=== PATIENT | female | born 1995 | race Caucasian/White ===

== ENCOUNTER 2021-02-27 23:28 | Emergency (ER) | payer MEDICAID, SELFPAY ==
--- NOTE | ~2021-02-27 | CT_ITS ---
EXAMINATION: CT abdomen pelvis wo con EXAM DATE: 02/28/2021 02:37 INDICATION: Left flank pain. TECHNIQUE: Spiral CT of the abdomen and pelvis was performed without contrast. Axial, coronal and s agittal images of the abdomen and pelvis were reviewed. The dose-length product (DLP) for this exami nation was 436.66 mGy-cm. The exposure was tailored according to patient size (auto mA exposure cont rol), and iterative reconstruction (ASIR) was used as additional dose reduction technique. There is no prior study for comparison. FINDINGS: There is hepatic steatosis without suspicious focal lesion identified. Spleen, adrenal glan ds, pancreas are unremarkable. Gallbladder is unremarkable. No biliary obstruction. There is no ne phrolithiasis or hydronephrosis. The uterus is anteverted and morphologically normal. The bladder is unremarkable. There is no retroperitoneal or pelvic lymphadenopathy. The appendix is normal. The stomach and small bowel are unremarkable. There is expected amount of c olonic stool. No free intraperitoneal gas. The heart is normal in size. There are no pericardial or pleural effusions. The lung bases are unremarkable. There are no osteoblastic or osteolytic les ions identified. IMPRESSION: No acute intra-abdominal findings. Reviewed, dictated and finalized at location A.
[2021-02-27 23:31] VITALS: BP 124/91; PULSE 119; RESP 18; TEMP 36.7; O2SAT 100
[2021-02-28 00:05] LABS: Basophils Percent Auto 0.5 % (0.2-1.2); Eosinophils Absolute Auto 0.3 K/mm3 (0-0.3); Eosinophils Percent Auto 4.9 % (0-4.4); Hematocrit 42.7 % (37.0-47.0); Hemoglobin 14.1 g/dL (12.0-15.0); Immature Granulocyte Absolute 0.05 K/mm3 (0.00-0.031); Immature Granulocyte Percent A 0.8 % (0-0.5); Lymphocytes Absolute Auto 2.25 K/mm3 (0.9-3.2); Lymphocytes Percent Auto 36.6 % (18.3-44.2); Mean Corpuscular Volume 84.9 fl (80-100); Mean Platelet Volume 9.4 fl (7.4-10.4); Monocytes Absolute Auto 0.3 K/mm3 (0.1-0.6); Monocytes Percent Auto 4.6 % (2.6-8.5); Neutrophils Absolute Auto 3.2 K/mm3 (1.3-6.7); Neutrophils Percent Auto 52.6 % (45.5-73.1); Platelet Count Result 319 k/mm3 (150-375); Red Blood Count 5.03 M/mm3 (4.2-5.4); Red Cell Distribution Width 13.5 % (11.5-14.5); White Blood Count 6.1 K/mm3 (4.5-10.0)
[2021-02-28 00:10] LABS: Add Urine Microscopic? YES; Appearance Urine Cloudy (Clear); Bacteria Urine Trace /hpf; Bilirubin Urine Negative (Negative); Blood Urine Negative (Negative); Color Urine Yellow (Yellow); Glucose Urine UA Negative (Negative); Ketones Urine Negative (Negative); Leukocyte Esterase Ur Negative LEU/UL (Negative); Mucus Urine Rare /lpf; Nitrate Urine Negative (Negative); Protein Urine Negative (Negative); Specific Grav Ur 1.025 (1.001-1.035); Squamous Epithelial Cell Urine Occasional /hpf (Few); Urobilinogen Urine Negative mg/dL (<2.0); WBC Urine 0-3 /hpf
[2021-02-28 00:35] LABS: Anion Gap 10 mmol/L (8-16); Blood Urea Nitrogen 10 mg/dL (7-17); Calcium 9.7 mg/dL (8.4-10.2); Carbon Dioxide 22 mmol/L (22-30); Chloride 107 mmol/L (98-107); Estimated CRCL calculation 129 ml/min; Estimated Glomerular Filt Rate > 60; Glucose 126 mg/dL (65-110); Potassium 4.2 mmol/L (3.4-5.0); Sodium 139 mmol/L (137-145)
--- NOTE | 2021-02-28 02:11 | ED.ABDPAIN ---
HPI - Abdominal Pain General Chief Complaint: Abdominal Pain Stated Complaint: L flank pain Time Seen by Provider: 02/28/21 02:10 Source: patient Mode of arrival: ambulatory Limitations: no limitations History of Present Illness HPI narrative: Patient is a 25-year-old female complaining of left flank pain, sharp, 9 out of 10, radiating to left groin that started approximately 20 minutes prior to arrival. Patient denies any chest pain, shortness of breath, nausea, vomiting, diarrhea, fever or chills. Patient denies any urinary symptoms. Related Data Home Medications Medication Instructions Recorded Confirmed citalopram mg 02/28/21 Allergies Allergy/AdvReac Type Severity Reaction Status Date / Time No Known Allergies Allergy Verified 02/28/21 02:44 Review of Systems Review of Systems: All systems reviewed & are unremarkable except as noted in HPI and below Constitutional: Constitutional: Denies body ache(s), Denies chills, Denies excessive sweating, Denies fatigue, Denies fever(s), Denies headache(s), Denies lethargy, Denies malaise, Denies weakness and Denies weight loss Eyes: Eyes: Denies blurry vision, Denies change in vision and Denies loss of vision ENT: Denies dizziness, Denies ear discharge, Denies headache(s), Denies lip swelling, Denies epistaxis, Denies nasal congestion, Denies neck pain, Denies throat swelling and Denies tongue swelling Cardiovascular: Cardiovascular: Denies chest pain, Denies chest pain at rest, Denies chest pain with activity, Denies diaphoresis, Denies rapid heart rate, Denies edema, Denies irregular heart rhythm, Denies lightheadedness, Denies palpitations, Denies dyspnea and Denies dyspnea on exertion Respiratory: Respiratory: Denies chest congestion, Denies cough, Denies hemoptysis, Denies dyspnea and Denies dyspnea on exertion Gastrointestinal: Gastrointestinal: Denies abdominal pain, Denies melena, Denies hematochezia, Denies diarrhea, Denies nausea, Denies vomiting and Denies hematemesis Musculoskeletal: Musculoskeletal: Denies abnormal gait, Denies deformity, Denies joint swelling, Denies limited range of motion, Denies neck pain and Denies numbness Neurologic: Denies Abnormal speech present, Denies abnormal gait, Denies confusion, Denies dizziness, Denies headache(s), Denies focal weakness, Denies loss of vision, Denies numbness, Denies Other visual disturbances, Denies Sensory deficit (Neuro) and Denies weakness Psychiatric: Psychiatric: Denies confusion, Denies depression, Denies auditory hallucinations, Denies homicidal ideation and Denies suicidal ideation Endocrine: Endocrine: Denies cold intolerance, Denies excessive sweating, Denies fatigue, Denies heat intolerance and Denies palpitations Hematologic/Lymphatic: Hematologic/Lymphatic: Denies easy bleeding and Denies easy bruising Allergic/Immunologic: Allergic/Immunologic: Denies lip swelling, Denies throat swelling and Denies tongue swelling [facility] Social History Social History Gender identity (if verbalized by the patient): Female Comments Past medical history: None Family history: Noncontributory Social history non-smoker no EtOH or drug use Exam Const: General: cooperative, healthy appearing, comfortable, no acute distress, well developed, alert and awake; No confusion Orientation/consciousness: oriented to person, oriented to place, oriented to time, patient oriented x3 and No confusion Limitations: no limitations HENMT: Head: normal to inspection, normocephalic and atraumatic Ears: hearing grossly normal bilaterally, TM normal on the right and TM normal on the left General nose exam: Normal external nose present, Normal nares present and No nasal discharge present Face and sinus: normal facial exam Mouth: Yes Normal oral and palatal mucosa present, Yes lip normal, Yes tongue normal and Yes oropharynx normal Throat: posterior oropharynx normal, tonsils dung
--- NOTE | 2021-02-28 02:34 | PC.NURSE ---
Pt back to room from radiology at this time.
[2021-02-28 02:40] VITALS: BP 121/50; PULSE 104; RESP 16; O2SAT 100
[2021-02-28] MEDS: KETOROLAC 30 MG/ML VIAL (*BKC) IV PUSH (02:51)
[2021-02-28] MEDS: PROMETHAZINE HCL 25 MG/ML AMPUL 12.5 MG IV PUSH (02:53)
[2021-02-28] MEDS: SODIUM CHLORIDE 0.9% IV 1,000 ML 999 ML IV CONT (02:53)
[2021-02-28 04:06] VITALS: BP 117/84; PULSE 77; RESP 16; O2SAT 98
== END 2021-02-28 04:23 | disposition home or self-care (01) ==
PROVIDERS: Emergency Provider Emergency Medicine; PCP Physician Assistant
DX: R10.9 Unspecified abdominal pain (principal)
CPT/HCPCS: 36415; 74176; 80048; 81001; 81025; 85025; 96361; 96374; 96375; 99284; J1885; J2550; J7030

== ENCOUNTER 2021-03-16 09:49 | Outpatient (CLI) | payer OTHER, MEDICAID, SELFPAY ==
--- NOTE | 2021-03-16 11:15 | NEURO_ITS ---
Impression: # Complains of numbness of hands. # No Carpal Tunnel Syndrome or ulnar neuropathy. # Normal nerve conduction study. # Normal needle/EMG exam. # Clinical correlation recommended. Nerve Conduction Studies Anti Sensory Summary Table Stim Site NR Peak (ms) P-T Amp (?V) Site1 Site2 Delta-P (ms) Dist (cm) Jarek (m/s) Left Median Anti Sensory (2-3nd Digit) Wrist 2.5 86.7 Wrist 2-3nd Digit 2.5 14.0 56 Wrist 2.4 97.0 Wrist 2-3nd Digit 2.5 14.0 56 Right Median Anti Sensory (2-3nd Digit) Wrist 2.3 80.3 Wrist 2-3nd Digit 2.3 14.0 61 Wrist 2.2 85.0 Wrist 2-3nd Digit 2.3 14.0 61 Left Radial Anti Sensory (Base 1st Digit) Wrist 1.7 25.3 Wrist Base 1st Digit 1.7 0.0 Right Radial Anti Sensory (Base 1st Digit) Wrist 1.9 15.1 Wrist Base 1st Digit 1.9 0.0 Left Ulnar Anti Sensory (5th Digit) Wrist 2.1 82.9 Wrist 5th Digit 2.1 14.0 67 Right Ulnar Anti Sensory (5th Digit) Wrist 1.9 67.2 Wrist 5th Digit 1.9 14.0 74 Motor Summary Table Stim Site NR Onset (ms) O-P Amp (mV) Site1 Site2 Delta-0 (ms) Dist (cm) Jarek (m/s) Left Median Motor (Abd Poll Brev) Wrist 2.9 4.3 Elbow Wrist 4.6 27.0 59 Elbow 7.5 1.8 Right Median Motor (Abd Poll Brev) Wrist 2.8 3.3 Elbow Wrist 4.4 26.0 59 Elbow 7.2 3.7 Left Ulnar Motor (Abd Dig Minimi) Wrist 2.3 4.3 A Elbow Wrist 4.7 27.0 57 A Elbow 7.0 2.5 Right Ulnar Motor (Abd Dig Minimi) Wrist 2.5 6.8 A Elbow Wrist 4.8 28.0 58 A Elbow 7.3 4.9 F Wave Studies NR F-Lat (ms) L-R F-Lat (ms) Left Median (Mrkrs) (Abd Poll Brev) 25.55 0.81 Right Median (Mrkrs) (Abd Poll Brev) 24.74 0.81 Left Ulnar (Mrkrs) (Abd Dig Min) 24.87 0.70 Right Ulnar (Mrkrs) (Abd Dig Min) 25.57 0.70 EMG Side Muscle Nerve Root Ins Act Fibs Amp Dur Recrt Comment Right 1stDorInt Ulnar C8-T1 Nml Nml Nml Nml Nml Right Ext Indicis Radial (Post Int) C7-8 Nml Nml Nml Nml Nml Right Ext Digitorum Radial (Post Int) C7-8 Nml Nml Nml Nml Nml Right BrachioRad Radial C5-6 Nml Nml Nml Nml Nml Right PronatorTeres Median C6-7 Nml Nml Nml Nml Nml Right Abd Poll Brev Median C8-T1 Nml Nml Nml Nml Nml Left 1stDorInt Ulnar C8-T1 Nml Nml Nml Nml Nml Left Ext Indicis Radial (Post Int) C7-8 Nml Nml Nml Nml Nml Left Ext Digitorum Radial (Post Int) C7-8 Nml Nml Nml Nml Nml Left BrachioRad Radial C5-6 Nml Nml Nml Nml Nml Left PronatorTeres Median C6-7 Nml Nml Nml Nml Nml Left Abd Poll Brev Median C8-T1 Nml Nml Nml Nml Nml MTDD
== END 2021-03-16 09:50 | disposition home or self-care (01) ==
PROVIDERS: PCP Physician Assistant; Visit Provider Physician Assistant
DX: G56.02 Carpal tunnel syndrome, left upper limb (principal)
CPT/HCPCS: 95886; 95911

== ENCOUNTER 2021-06-14 01:39 | Emergency (ER) | payer OTHER, MEDICAID, SELFPAY ==
--- NOTE | 2021-06-14 01:46 | ED.URI ---
HPI - URI/Sore Throat General Chief Complaint: Upper Respiratory Infection Stated Complaint: sore throat, low grade temp Time Seen by Provider: 06/14/21 01:46 Source: patient Mode of arrival: ambulatory Limitations: no limitations History of Present Illness HPI Narrative: Patient is a G4, P1 currently 16 weeks presenting to the emergency department for evaluation of sore throat. Patient states that she has had a sore throat worsening over the past 72 hours. Patient denies any cough, shortness of breath, ear pain. She does report mild sinus congestion. Patient reports subjective fever. He denies any vomiting. Patient states she has had some nausea with this which has been controlled with some nausea drops. These aren't [id number] the medication, not a prescription medication. Patient denies history of recent sick contacts. She is vaccinated for Covid. Patient denies vaginal bleeding, loss of fluids, contraction-like pain. She denies any abdominal pain. No dysuria or hematuria. Patient's CLIENT DELIVERY MANAGER previously was Dr. White, however patient states that he has since retired and she is established with a new CLIENT DELIVERY MANAGER at [facility] office. Related Data Home Medications Medication Instructions Recorded Confirmed citalopram mg 02/28/21 Allergies Allergy/AdvReac Type Severity Reaction Status Date / Time No Known Allergies Allergy Verified 06/14/21 02:01 Review of Systems Review of Systems: CONSTITUTIONAL: Reports subjective fever, denies chills HEENT: Reports sore throat, denies ear pain CARDIOVASCULAR: Denies chest pain RESPIRATORY: Denies cough or dyspnea. GASTROINTESTINAL: Denies abdominal pain\ : Denies dysuria, hematuria, vaginal bleeding, loss of fluids SKIN: Denies rash MUSCULOSKELETAL: Denies back pain NEUROLOGIC: Denies headache [facility] Past Medical History Medical History (Updated 06/14/21 @ 03:02 by Saundra Ravi MD) Miscarriage Social History Social History (Updated 06/14/21 @ 02:01 by Saundra Ravi MD) Smoking status: Never smoker Alcohol intake: never Substance use: never Gender identity (if verbalized by the patient): Female Exam Narrative: GENERAL: Awake, alert, conversant HEAD: Normocephalic, atraumatic. EYES: PERRLA and EOMI. ENT: Nares clear, no rhinorrhea or epistaxis. Tympanic membranes are clear bilaterally without bulging, exudate or purulence. Mucous membranes moist. Uvula is midline. [place] tonsils are mildly edematous, no significant erythema or exudate. No significant cervical lymphadenopathy. NECK: Supple. No thyromegaly. No thyroid nodules palpated. CHEST: No respiratory distress, breathing even and non labored HEART: Regular rate, sinus rhythm ABDOMEN:Non distended, non tender, fundus palpable above the umbilicus EXTREMITIES: Normal range of motion. No edema. SKIN: Warm, dry, no rash. NEURO:No focal deficits. Alert and oriented x3 Course Vital Signs Vital signs: Vital Signs Temperature 37.2 C 06/14/21 01:54 Pulse Rate 99 06/14/21 01:54 Respiratory Rate 16 06/14/21 01:54 Blood Pressure 123/84 06/14/21 01:54 Pulse Oximetry 99 06/14/21 01:54 Temperature 36.9 C 06/14/21 02:45 Pulse Rate 95 06/14/21 02:45 Respiratory Rate 16 06/14/21 02:45 Blood Pressure 103/73 06/14/21 02:45 Pulse Oximetry 99 06/14/21 02:45 MDM - URI/Sore Throat MDM Narrative Medical decision making narrative: Patient presented for evaluation sore throat. Patient is currently 16 weeks , is not having any abdominal pain, vaginal bleeding, loss of fluids. Patient is afebrile and well-appearing without any respiratory symptoms at the time of assessment. No cough or shortness of breath. Lungs are clear. heart tones were obtained. On exam, uvula is midline, no significant edema or erythema. No exudate. No thyromegaly. No cervical adenopathy. Does not seem consistent with strep pharyngitis based
[2021-06-14 01:54] VITALS: BP 123/84; PULSE 99; RESP 16; TEMP 37.2; O2SAT 99
[2021-06-14] MEDS: ACETAMINOPHEN 500 MG TABLET 1000 MG PO (02:07)
[2021-06-14 02:45] VITALS: BP 103/73; PULSE 95; RESP 16; TEMP 36.9; O2SAT 99
[2021-06-14 20:26] LABS: SARS-CoV-2 RNA PCR Negative
== END 2021-06-14 03:28 | disposition home or self-care (01) ==
PROVIDERS: Emergency Provider Emergency Medicine; PCP Physician Assistant
DX: O99.512 Diseases of the respiratory system complicating pregnancy, second trimester (principal); Z20.822 Contact with and (suspected) exposure to COVID-19; Z3A.16 16 weeks gestation of pregnancy
CPT/HCPCS: 87081; 87804; 87880; 99283; A9270; C9803; U0003; U0005

== ENCOUNTER 2021-07-23 21:36 | Observation (INO) | payer OTHER, MEDICAID, SELFPAY ==
[2021-07-23 21:46] VITALS: BP 120/66; PULSE 103
[2021-07-23 22:00] VITALS: BP 107/63; PULSE 94
[2021-07-23 22:16] VITALS: BP 87/61; PULSE 94
[2021-07-23 22:30] VITALS: BP 104/64; PULSE 87
[2021-07-23 22:45] VITALS: BP 104/60; PULSE 82
[2021-07-23 23:04] VITALS: BP 104/60; PULSE 82
--- NOTE | 2021-07-25 07:12 | PM.OBTRLD ---
OB - Triage/Final Diagnosis Visit Information Reason for evaluation: other (bleeding) Comments/Additional reasons for admission: I have assessed the risk for this patient, Mamie Cohen, and determined that she would benefit from observation care.
== END 2021-07-23 23:15 | disposition home or self-care (01) ==
PROVIDERS: Admitting Provider Obstetrics & Gynecology; PCP Physician Assistant; Visit Provider Obstetrics & Gynecology
DX: O46.92 Antepartum hemorrhage, unspecified, second trimester (principal); Z3A.23 23 weeks gestation of pregnancy
CPT/HCPCS: 59025; G0378; G0379

== ENCOUNTER 2021-07-25 14:30 | Outpatient (CLI) | payer OTHER, MEDICAID, SELFPAY ==
--- NOTE | ~2021-07-25 | US_ITS ---
EXAMINATION: US OB limited DATE: 07/25/2021 15:33 INDICATION: Antepartum hemorrhage. Second trimester. TECHNIQUE: Real-time ultrasound of the pelvis was performed. COMPARISON: None. FINDINGS: There is a single fetus in transverse lie. The placenta is anterior. heart rate is 139 beats p er minute (bpm). The amniotic fluid volume is subjectively normal. IMPRESSION: 1. Single living fetus in transverse lie. 2. Normal placenta. Reviewed, dictated and finalized at location A. E TANK SEPARATOR OPERATOR
== END 2021-07-25 14:31 | disposition home or self-care (01) ==
PROVIDERS: PCP Physician Assistant
DX: O26.859 Spotting complicating pregnancy, unspecified trimester (principal); Z3A.00 Weeks of gestation of pregnancy not specified
CPT/HCPCS: 76815

== ENCOUNTER 2021-09-05 09:20 | Outpatient (CLI) | payer MEDICAID, SELFPAY ==
--- NOTE | ~2021-09-05 | US_ITS ---
EXAMINATION: US venous doppler [facility] EXAM DATE: 09/05/2021 09:57 INDICATION: Left calf pain. TECHNIQUE: Multiple grayscale, color flow and Doppler images of the left lower extremity deep venous system were obtained and reviewed. There is no prior study for comparison. FINDINGS: The left common femoral, femoral and profunda veins demonstrate normal color flow, respirat ory variation, augmentation and compressibility. Compressibility, color flow confirmed within the le ft popliteal, posterior tibial, peroneal, and greater saphenous veins. IMPRESSION: 1. No left lower extremity deep venous thrombosis. Reviewed, dictated and finalized at location G. ET HOOKER
== END 2021-09-05 09:21 | disposition home or self-care (01) ==
LOC: ANHIMG 09:24
PROVIDERS: PCP Physician Assistant
DX: M79.662 Pain in left lower leg (principal)
CPT/HCPCS: 93971

== ENCOUNTER 2022-10-21 08:04 | Day surgery (SDC) | payer OTHER, SELFPAY ==
[2022-10-21] VITALS (9 sets, daily range): BP systolic 109–136; BP diastolic 57–87; PULSE 74–105; RESP 14–22; TEMP 36.2–36.9; O2SAT 94–99
--- NOTE | ~2022-10-21 | CT_ITS ---
EXAMINATION: CT abdomen pelvis w con INDICATION: Right-sided abdominal pain TECHNIQUE: Computed tomographic images of the abdomen and pelvis were obtained after the administrati on of 100 cc of Omnipaque 350 intravenous contrast. The dose-length product (DLP) was 1398.97 mGy-cm. Automated exposure control and iterative reconstruction technique were employed. COMPARISON: 02/28/2021 FINDINGS: The lung bases are clear. The heart size is normal. The liver is diffusely low in attenuati on when compared with the spleen, consistent with hepatic steatosis. 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 The pancreas, gallbladder, and adrenal glands are normal. The kidneys a re unremarkable. The dilated appendix measures up to 11 mm and is present in the right upper quadrant situated between the right kidney and right hepatic lobe. There is edematous stranding of the periap pendiceal fat without abscess or perforation. No pathologically enlarged abdominal or pelvic lymph no stalin are identified. There are no dilated loops of bowel. There is a tiny umbilical hernia containing fat. There is a 3.4 cm cyst of the right ovary. IMPRESSION: 1. Uncomplicated acute appendicitis. Of note, the appendix is positioned in the right upper quadrant between the right kidney in right hepatic lobe. Reviewed, dictated and finalized at location A.
[2022-10-21 08:42] LABS: Basophils Absolute Auto 0.1 K/mm3 (0.0-0.1); Basophils Percent Auto 0.4 % (0.2-1.2); Eosinophils Absolute Auto 0.1 K/mm3 (0-0.3); Eosinophils Percent Auto 0.6 % (0-4.4); Hematocrit 39.8 % (37.0-47.0); Hemoglobin 13.6 g/dL (12.0-15.0); Immature Granulocyte Absolute 0.05 K/mm3 (0.00-0.031); Immature Granulocyte Percent A 0.3 % (0-0.5); Lymphocytes Absolute Auto 2.07 K/mm3 (0.9-3.2); Lymphocytes Percent Auto 11.9 % (18.3-44.2); Mean Corpuscular HGB Conc 34.2 g/dl (32-36); Mean Corpuscular Volume 82.1 fl (80-100); Mean Platelet Volume 9.9 fl (7.4-10.4); Monocytes Percent Auto 5.6 % (2.6-8.5); Neutrophils Absolute Auto 14.1 K/mm3 (1.3-6.7); Neutrophils Percent Auto 81.2 % (45.5-73.1); Platelet Count Result 348 k/mm3 (150-375); Red Blood Count 4.85 M/mm3 (4.2-5.4); Red Cell Distribution Width 14.6 % (11.5-14.5); White Blood Count 17.4 K/mm3 (4.5-10.0)
[2022-10-21 08:46] LABS: Appearance Urine Cloudy (Clear); Bacteria Urine 1+ /hpf; Bilirubin Urine Negative (Negative); Blood Urine Negative (Negative); Color Urine Yellow (Yellow); Glucose Urine UA Negative (Negative); Ketones Urine Negative (Negative); Leukocyte Esterase Ur Negative LEU/UL (Negative); Nitrate Urine Negative (Negative); Non Pathogenic Casts 0-2; Protein Urine Negative (Negative); RBC Urine 0-2 /hpf (0-2); Specific Grav Ur 1.027 (1.001-1.035); Squamous Epithelial Cell Urine Moderate /hpf (Few); Urobilinogen Urine 0.2 mg/dL (<2.0); WBC Urine 0-5 /hpf; pH Urine 5.5 (5.0-9.0)
[2022-10-21 08:51] LABS: Add Urine Microscopic? YES
[2022-10-21 08:55] LABS: Alanine Aminotransferase 43 U/L (6-35); Albumin Level 4.5 g/dL (3.5-5.1); Alkaline Phosphatase 93 U/L (38-126); Anion Gap 9 mmol/L (8-16); Aspartate Amino Transferase 30 U/L (14-36); Bilirubin,Total 0.5 mg/dL (0.2-1.3); Blood Urea Nitrogen 11 mg/dL (7-17); Calcium 9.2 mg/dL (8.4-10.2); Carbon Dioxide 22 mmol/L (22-30); Chloride 106 mmol/L (98-107); Estimated CRCL calculation 136 ml/min; Estimated Glomerular Filt Rate > 60; Glucose 114 mg/dL (65-110); Lipase 36 U/L (23-300); Potassium 4.2 mmol/L (3.4-5.0); Sodium 137 mmol/L (137-145)
[2022-10-21] MEDS: SODIUM CHLORIDE 0.9% IV 1,000 ML 999 ML IV CONT (09:17)
[2022-10-21] MEDS: MORPHINE SULFATE (*CRX) 4 MG/ML INJ IV PUSH (09:18)
[2022-10-21] MEDS: ONDANSETRON INJ 4 MG/2 ML VIAL IV PUSH (09:18)
[2022-10-21] MEDS: PIPERACILLN/TAZ 3.375GM/NS50ML 3.375 GM/50 ML BAG IVPB (10:18)
--- NOTE | 2022-10-21 10:26 | ED.GENADULT ---
HPI - General Adult General Chief complaint: Abdominal Pain Stated complaint: abdominal pain with n/v/d Time Seen by Provider: 10/21/22 08:38 History of Present Illness HPI narrative: Patient is a 27-year-old female who presents ER with abdominal pain. Began yesterday as a stomachache but today she has significant pain in the right lower quadrant right upper quadrant. No modification with eating or drinking. Cannot find any alleviating factors. She has had an episode of diarrhea and has had some vomiting. No known sick contacts. No history of gallstones. Related Data Home Medications Medication Instructions Recorded Confirmed citalopram 20 mg tablet mg 02/28/21 Allergies Allergy/AdvReac Type Severity Reaction Status Date / Time No Known Allergies Allergy Verified 10/21/22 08:04 Review of Systems Review of Systems: All systems reviewed & are unremarkable except as noted in HPI and below Constitutional: Constitutional: Denies chills, Denies fatigue and Denies fever(s) ENT: Denies nasal congestion and Denies sore throat Cardiovascular: Cardiovascular: Denies chest pain, Denies rapid heart rate and Denies radiating jaw, neck or arm pain Respiratory: Respiratory: Denies cough and Denies dyspnea Gastrointestinal: Gastrointestinal: Reports abdominal pain, Reports diarrhea, Reports nausea and Denies vomiting Genitourinary: Genitourinary: Denies nocturia and Denies dysuria PMFSH Past Medical History Medical History (Updated 10/21/22 @ 18:22 by Chris Malhotra MD) Miscarriage Morbid obesity with BMI of 40.0-44.9, adult Surgical History Surgical History (Updated 10/21/22 @ 10:27 by Chris Malhotra MD) History of section Family History Family History (Updated 10/21/22 @ 12:39 by Dewey Simms DO) Other No family history of adverse response to anesthesia Social History Social History (Updated 06/14/21 @ 02:01 by Saundra Ravi MD) Smoking status: Never smoker Alcohol intake: never Substance use: never Gender identity (if verbalized by the patient): Female Exam Narrative: GENERAL: Uncomfortable-appearing, well-nourished, and in no acute distress. HEAD: Normocephalic, atraumatic. EYES: PERRL and EOMI. ENT: Mucous membranes moist. CHEST: Clear to auscultation. No respiratory distress. HEART: Regular rate and rhythm. Normal peripheral pulses. ABDOMEN: Soft, tender palpation right upper quadrant and right lower quadrant with guarding, nondistended. EXTREMITIES: Normal range of motion. No edema. SKIN: Warm, dry, no rash. NEURO: Alert and oriented x3. PSYCH: Normal mood and affect. Course Course Emergency Course: Patient started on IV Zosyn. Discussed case with Dr. Simms with general surgery. He will take the patient directly to the OR. Patient educated on treatment plan and diagnosis and verbalized understanding. Vital Signs Vital signs: Vital Signs Temperature 97.1 F L 10/21/22 08:04 Pulse Rate 75 10/21/22 08:04 Respiratory Rate 16 10/21/22 08:04 Blood Pressure 134/87 10/21/22 08:04 Pulse Oximetry 99 10/21/22 08:04 Oxygen Delivery Room Air 10/21/22 08:04 Temperature 98.4 F 10/21/22 15:05 Pulse Rate 78 10/21/22 16:09 Respiratory Rate 22 H 10/21/22 14:24 Blood Pressure 123/72 10/21/22 16:09 Pulse Oximetry 95 10/21/22 14:24 Oxygen Delivery Room Air 10/21/22 16:09 Oxygen Flow Rate 10 10/21/22 13:54 Medical Decision Making Vital Signs Vital Signs: Vital Signs Temperature 97.1 F L 10/21/22 08:04 Pulse Rate 75 10/21/22 08:04 Respiratory Rate 16 10/21/22 08:04 Blood Pressure 134/87 10/21/22 08:04 Pulse Oximetry 99 10/21/22 08:04 Oxygen Delivery Room Air 10/21/22 08:04 Temperature 98.4 F 10/21/22 15:05 Pulse Rate 78 10/21/22 16:09 Respiratory Rate 22 H 10/21/22 14:24 Blood Pressure 123/72 10/21/22 16:09 Pulse Oximetry 95 10/21/22 14:24 Oxygen Delivery Room A
--- NOTE | 2022-10-21 11:30 | WPDANESEPP ---
Anes - Eval Pre Procedure Procedure: Laparoscopic Appendectomy Date/Time: 10/21/22 11:30 Surgeon: Carlos Simms Preop Diagnosis: acute appendicitis Pre Op Diagnosis: Appendicitis Patient Data Age: 27 Gender: F Height: 1.6 m Weight: 103 kg Last Vital Signs Temp 97.1 F L 10/21/22 08:04 Pulse 75 10/21/22 08:04 Resp 16 10/21/22 08:04 BP 134/87 10/21/22 08:04 Pulse Ox 99 10/21/22 08:04 O2 Del Method Room Air 10/21/22 08:04 Allergies Allergy/AdvReac Type Severity Reaction Status Date / Time No Known Allergies Allergy Verified 10/21/22 08:04 Home Medications Medication Instructions Recorded Confirmed Type citalopram 20 mg tablet mg 02/28/21 History Laboratory Tests 10/21/22 10/21/22 10/21/22 08:37 08:37 08:37 WBC 17.4 K/mm3 H K/mm3 (4.5-10.0) RBC 4.85 M/mm3 M/mm3 (4.2-5.4) Hgb 13.6 g/dL g/dL (12.0-15.0) Hct 39.8 % % (37.0-47.0) MCV 82.1 fl fl (80-100) MCH 28.0 pg pg (26-34) MCHC 34.2 g/dl g/dl (32-36) RDW 14.6 % H % (11.5-14.5) Plt Count 348 k/mm3 k/mm3 (150-375) MPV 9.9 fl fl (7.4-10.4) Immature Gran % (Auto) 0.3 % % (0-0.5) Neut % (Auto) 81.2 % H % (45.5-73.1) Lymph % (Auto) 11.9 % L % (18.3-44.2) Early % (Auto) 5.6 % % (2.6-8.5) Eos % (Auto) 0.6 % % (0-4.4) Baso % (Auto) 0.4 % % (0.2-1.2) Lymph # (Auto) 2.07 K/mm3 K/mm3 (0.9-3.2) Early # (Auto) 1.0 K/mm3 H K/mm3 (0.1-0.6) Eos # (Auto) 0.1 K/mm3 K/mm3 (0-0.3) Baso # (Auto) 0.1 K/mm3 K/mm3 (0.0-0.1) Abs Immat Gran (auto) 0.05 K/mm3 H K/mm3 (0.00-0.031) Absolute Neuts (auto) 14.1 K/mm3 H K/mm3 (1.3-6.7) Absolute Nucleated RBC 0.0 K/mm3 K/mm3 (0.0-0.012) Nucleated RBC % 0.0 % % (0.0-0.2) Sodium 137 mmol/L mmol/L (137-145) Potassium 4.2 mmol/L mmol/L (3.4-5.0) Chloride 106 mmol/L mmol/L (98-107) Carbon Dioxide 22 mmol/L mmol/L (22-30) Anion Gap 9 mmol/L mmol/L (8-16) BUN 11 mg/dL mg/dL (7-17) Creatinine 0.60 mg/dL L mg/dL (0.7-1.0) Estim Creat Clear Calc 136 ml/min ml/min Estimated GFR > 60 (59 - ) Glucose 114 mg/dL H mg/dL (65-110) Calcium 9.2 mg/dL mg/dL (8.4-10.2) Total Bilirubin 0.5 mg/dL mg/dL (0.2-1.3) AST 30 U/L U/L (14-36) ALT 43 U/L H U/L (6-35) Alkaline Phosphatase 93 U/L U/L (38-126) Total Protein 8.0 g/dL g/dL (6.3-8.2) Albumin 4.5 g/dL g/dL (3.5-5.1) Lipase 36 U/L U/L (23-300) Urine Color Yellow (Yellow) Urine Appearance Cloudy H (Clear) Urine pH 5.5 (5.0-9.0) Ur Specific [place] 1.027 (1.001-1.035) Urine Protein Negative mg/dL mg/dL (Negative) Urine Glucose (UA) Negative mg/dL mg/dL (Negative) Urine Ketones Negative mg/dL mg/dL (Negative) Ur Blood (Man) Negative (Negative) Urine Nitrate Negative (Negative) Urine Bilirubin Negative (Negative) Urine Urobilinogen 0.2 mg/dL mg/dL (<2.0) Leukocyte Esterase Rfl Negative MAGNOLIA/UL MAGNOLIA/UL (Negative) Urine RBC 0-2 /hpf /hpf (0-2) Urine WBC 0-5 /hpf /hpf Ur Squamous Epith Cells Moderate /hpf H /hpf (Few) Urine Bacteria 1+ /hpf H /hpf Urine Casts 0-2 HCG: negative Patient hx anesthesia problems: none Family hx anesthesia problems: none Prior surgeries: CS Results Review: All pre-operative results and documents have been reviewed as part of the pre-operative evaluation. [facility] Past Medical History Medical History (Updated 10/21/22 @ 11:31 by Nuha Wen CRNA) Tanya
--- NOTE | 2022-10-21 12:23 | WPDANESEPPF ---
Anes - Initial Pre Proc Eval Procedure: Operation Date: 10/21/22 12:45 Proposed Procedures p Laparoscopic Appendectomy - Dewey Simms DO Date/Time: 10/21/22 12:23 Surgeon: Dewey Simms DO Pre Op Diagnosis: Appendicitis Patient Data Age: 27 Gender: F Height: 1.6 m Weight: 103 kg Last Vital Signs Temp 36.2 C L 10/21/22 08:04 Pulse 74 10/21/22 11:33 Resp 18 10/21/22 11:33 BP 124/83 10/21/22 11:33 Pulse Ox 99 10/21/22 11:33 O2 Del Method Room Air 10/21/22 08:04 Allergies Allergy/AdvReac Type Severity Reaction Status Date / Time No Known Allergies Allergy Verified 10/21/22 08:04 Home Medications Medication Instructions Recorded Confirmed Type citalopram 20 mg tablet mg 02/28/21 History Laboratory Tests 10/21/22 10/21/22 10/21/22 08:37 08:37 08:37 WBC 17.4 K/mm3 H K/mm3 (4.5-10.0) RBC 4.85 M/mm3 M/mm3 (4.2-5.4) Hgb 13.6 g/dL g/dL (12.0-15.0) Hct 39.8 % % (37.0-47.0) MCV 82.1 fl fl (80-100) MCH 28.0 pg pg (26-34) MCHC 34.2 g/dl g/dl (32-36) RDW 14.6 % H % (11.5-14.5) Plt Count 348 k/mm3 k/mm3 (150-375) MPV 9.9 fl fl (7.4-10.4) Immature Gran % (Auto) 0.3 % % (0-0.5) Neut % (Auto) 81.2 % H % (45.5-73.1) Lymph % (Auto) 11.9 % L % (18.3-44.2) [place] % (Auto) 5.6 % % (2.6-8.5) Eos % (Auto) 0.6 % % (0-4.4) Baso % (Auto) 0.4 % % (0.2-1.2) Lymph # (Auto) 2.07 K/mm3 K/mm3 (0.9-3.2) [place] # (Auto) 1.0 K/mm3 H K/mm3 (0.1-0.6) Eos # (Auto) 0.1 K/mm3 K/mm3 (0-0.3) Baso # (Auto) 0.1 K/mm3 K/mm3 (0.0-0.1) Abs Immat Gran (auto) 0.05 K/mm3 H K/mm3 (0.00-0.031) Absolute Neuts (auto) 14.1 K/mm3 H K/mm3 (1.3-6.7) Absolute Nucleated RBC 0.0 K/mm3 K/mm3 (0.0-0.012) Nucleated RBC % 0.0 % % (0.0-0.2) Sodium 137 mmol/L mmol/L (137-145) Potassium 4.2 mmol/L mmol/L (3.4-5.0) Chloride 106 mmol/L mmol/L (98-107) Carbon Dioxide 22 mmol/L mmol/L (22-30) Anion Gap 9 mmol/L mmol/L (8-16) BUN 11 mg/dL mg/dL (7-17) Creatinine 0.60 mg/dL L mg/dL (0.7-1.0) Estim Creat Clear Calc 136 ml/min ml/min Estimated GFR > 60 (59 - ) Glucose 114 mg/dL H mg/dL (65-110) Calcium 9.2 mg/dL mg/dL (8.4-10.2) Total Bilirubin 0.5 mg/dL mg/dL (0.2-1.3) AST 30 U/L U/L (14-36) ALT 43 U/L H U/L (6-35) Alkaline Phosphatase 93 U/L U/L (38-126) Total Protein 8.0 g/dL g/dL (6.3-8.2) Albumin 4.5 g/dL g/dL (3.5-5.1) Lipase 36 U/L U/L (23-300) Urine Color Yellow (Yellow) Urine Appearance Cloudy H (Clear) Urine pH 5.5 (5.0-9.0) Ur Specific [place] 1.027 (1.001-1.035) Urine Protein Negative mg/dL mg/dL (Negative) Urine Glucose (UA) Negative mg/dL mg/dL (Negative) Urine Ketones Negative mg/dL mg/dL (Negative) Ur Blood (Man) Negative (Negative) Urine Nitrate Negative (Negative) Urine Bilirubin Negative (Negative) Urine Urobilinogen 0.2 mg/dL mg/dL (<2.0) Leukocyte Esterase Rfl Negative MAGNOLIA/UL MAGNOLIA/UL (Negative) Urine RBC 0-2 /hpf /hpf (0-2) Urine WBC 0-5 /hpf /hpf Ur Squamous Epith Cells Moderate /hpf H /hpf (Few) Urine Bacteria 1+ /hpf H /hpf Urine Casts 0-2 HCG: negative Patient hx anesthesia problems: none Family hx anesthesia problems: none Results Review: All pre-operative results and documents have been reviewed as part of the pre-operative evaluation. [facility] Past Medical History Medical History (Updated 10/21/22 @ 12:2
[2022-10-21] MEDS: LACTATED RINGERS 1,000 ML 30 ML IV CONT ×2 (12:31→13:48)
--- NOTE | 2022-10-21 12:36 | WPDHPUPDATE1 ---
History and Physical Update Update Date/Time: 10/21/22 12:36 History and Physical has been reviewed, including an updated exam of the patient. There are NO changes in the patient's condition. Risks, benefits, and alternatives have been discussed and questions answered. Patient agrees to proceed with procedure.
--- NOTE | 2022-10-21 12:36 | PM.IMHP ---
H&P: HPI History of Present Illness Date/Time: 10/21/22 12:36 Chief Complaint: Right lower quadrant pain Narrative: This is a 27-year-old woman who presented to the emergency department this morning with right lower quadrant pain. She began having some vague abdominal pain yesterday that felt like a stomach ache. She then woke up around 3:00 a.m. this morning with worsening pain localized to the right lower quadrant. She was also experiencing nausea and vomiting. She denies any fevers or chills. She has never had any symptoms like this before. Review of Systems Review of Systems: All systems reviewed & are unremarkable except as noted in HPI and below Constitutional: Constitutional: Denies chills and Denies fever(s) Eyes: Eyes: Denies change in vision ENT: Denies hearing loss, Denies neck pain and Denies sore throat Cardiovascular: Cardiovascular: Denies chest pain and Denies dyspnea Respiratory: Respiratory: Denies cough, Denies dyspnea and Denies wheezing Gastrointestinal: Gastrointestinal: Reports as per HPI Genitourinary: Genitourinary: Denies hematuria and Denies dysuria Musculoskeletal: Musculoskeletal: Denies arthralgias, Denies joint swelling and Denies neck pain Allergic/Immunologic: Allergic/Immunologic: Denies wheezing PMFSH Past Medical History Medical History (Updated 10/21/22 @ 12:41 by Dewey Simms DO) Miscarriage Morbid obesity with BMI of 40.0-44.9, adult Surgical History Surgical History (Updated 10/21/22 @ 10:27 by Chris Malhotra MD) History of section Family History Family History (Updated 10/21/22 @ 12:39 by Dewey Simms DO) Other No family history of adverse response to anesthesia Social History Social History (Updated 06/14/21 @ 02:01 by Saundra Ravi MD) Smoking status: Never smoker Alcohol intake: never Substance use: never Gender identity (if verbalized by the patient): Female Meds Home Medications and Allergies Home Medications Medication Instructions Recorded Confirmed Type citalopram 20 mg tablet mg 02/28/21 History Allergies Allergy/AdvReac Type Severity Reaction Status Date / Time No Known Allergies Allergy Verified 10/21/22 08:04 Vital Signs Vital Signs - 24 hr 10/21/22 08:04 10/21/22 11:32 10/21/22 11:33 Temperature 36.2 C L Pulse Rate 75 74 Respiratory Rate 16 18 Blood Pressure 134/87 124/83 Pulse Oximetry 99 97 99 Oxygen Delivery Room Air Exam Const: General: alert; No acute distress Orientation/consciousness: patient oriented x3 Limitations: no limitations HENMT: Head: normocephalic and atraumatic Ears: hearing grossly normal bilaterally Face/Nose/Sinus: Normal external nose present and Normal nares present Mouth: Yes Normal oral and palatal mucosa present and Yes moist mucous membranes Eyes: General: appearance normal, both eyes and all related structures Conjunctivae: conjunctivae normal Sclera: sclerae normal Pupils: Equal, round and reactive pupils present EOM: EOMs intact bilaterally Neck: Neck: normal visual inspection, full ROM, no lymphadenopathy, supple and no JVD Lymphatic: no lymphadenopathy noted Chest: Chest palpation & inspection: normal inspection of the chest Resp: Effort & Inspection: normal respiratory effort and able to speak in complete sentences Auscultation: clear to auscultation bilaterally Percussion: percussion normal Cardio: Jugular venous distension: no JVD Rate: regular rate Rhythm: regular rhythm Heart sounds: S1 normal heart sound present and S2 normal heart sound present Peripheral pulses: Peripheral pulses 2+ throughout GI: Inspection: normal to inspection GI Palp: Yes abdominal tenderness, Yes Soft to palpation, Yes Tenderness to palpation present (GI) (Right lower quadrant), Yes Guarding due to palpation present (GI), No Hernia present and No Rebound tenderness present Percussion: Yes normal to percussion Auscultation: nor
[2022-10-21] MEDS: BUPIVACAINE/EPINEPHRINE 0.25% 50 ML VIAL 30 ML INFILTRATE (13:12)
--- NOTE | 2022-10-21 13:33 | W.PM.PROC2 ---
Procedure Note - Detailed Date of Procedure 10/21/22 Pre-op Diagnosis Appendicitis Post-op Diagnosis Same Procedure Performed Laparoscopic appendectomy Surgeon Dewey Simms, DO Anesthesia General and Local (0.5% bupivicaine with epinephrine) Indications This is 27-year-old woman presented to the emergency department this morning with right lower quadrant pain that started yesterday. Her pain continued to worsen overnight and she then presented to the ED this morning. She was noted to have a 17,[address] showed evidence of acute appendicitis. Appendix was located slightly higher than normal up near the edge of the liver. There was no sign of perforation or abscess. Discussions were made with the patient treatment options and decision was made to proceed with laparoscopic appendectomy, possible open. Findings Laparoscopic appendectomy was performed. The appendix was identified in the right upper quadrant closer to the inferior edge of the right lobe of the liver. The ports were placed in a slightly higher than normal position due to the abnormal location. The base of the appendix appear healthy and viable. There was no evidence of perforation or abscess but the appendix did appear indurated and inflamed. The appendix was removed and sent to lab for pathology. No other significant abnormalities were noted. Description of Procedure Procedure as well as risks, benefits, and alternatives were explained to the patient. The patient agreed to proceed. Written consent was obtained and placed in chart prior to procedure. The patient was brought back to surgical suite. She was placed supine on operating table. Time-out was done to confirm the patient and procedure. The patient was then intubated by the Anesthesia Department. Her abdomen was prepped and draped in sterile fashion using chlorhexidine prep. A 5 mm incision was made just to the left of the patient's umbilicus and a 5 mm Optiview trocar was advanced through the abdominal layers under direct visualization. Once inside the peritoneal cavity, carbon dioxide insufflation was used to create a pneumoperitoneum. The camera was inserted and the abdomen was inspected. No immediate abnormalities were identified. The patient was then placed in slight Trendelenburg position and rotated to the left. A 5 mm incision was made in the upper abdomen in midline and a 5 mm trocar was inserted under direct visualization. A 12 mm incision was made in the subxiphoid region and a 12 mm trocar was inserted under direct visualization. The right lateral abdomen was carefully inspected. The cecum was identified and then this was traced back to the appendix. The appendix was identified and grasped at the mesoappendix and lifted anteriorly. Careful blunt dissection was carried out at the base of the appendix through the mesoappendix using a [place] grasper. An Endo-MAGALIS 45 mm blue load stapler was then advanced across the base of the appendix and clamped and fired. A white reload was then clamped across the mesoappendix and fired. This freed up our appendix completely. It was then placed in an EndoCatch bag and removed through the left lower quadrant port. The staple lines were then inspected. Hemostasis appeared adequate and the staple lines appeared secure. The area was then irrigated with sterile saline. The pelvis was then carefully inspected and irrigated with sterile saline as well and the remainder of the abdomen was carefully inspected. The patient was then flattened out in bed. One final inspection was made around the abdominal cavity and no other abnormalities were seen. The subxiphoid port was removed and a Cipriano-Joslyn cone was used to approximate the fascia with an 0 Vicryl simple interrupted suture. The remaining ports were then removed under direct visualization. The camera was removed and the pneumoperitoneum was released. 0.5% bupivacaine with epinephrine was infiltrated locally ar
[2022-10-21] MEDS: fentaNYL CITRATE INJ (*CRX) 100 MCG/2 ML VIAL 25 MCG IV PUSH ×4 (14:06→14:43)
[2022-10-21] MEDS: oxyCODONE HCL (*CRX) 5 MG TAB IR PO (15:02)
== END 2022-10-21 16:20 | disposition home or self-care (01) ==
LOC: ANHED 08:38 → ANHSURGERY 10:59
PROVIDERS: Emergency Provider Emergency Medicine; PCP Physician Assistant; Visit Provider Surgery
PROC: 0DTJ4ZZ Resection of Appendix, Percutaneous Endoscopic Approach (ICD-10-PCS; CPT 44970; principal; 2022-10-21 12:45)
DX: K35.80 Unspecified acute appendicitis (principal); E66.01 Morbid (severe) obesity due to excess calories; Z68.41 Body mass index [BMI] 40.0-44.9, adult
CPT/HCPCS: 44970; 36415; 74177; 80053; 81001; 81025; 83690; 85025; 88304; 96361; 96365; 96375; 99285; A9270; J0330; J2250; J2270; J2405; J2543; J2704; J3010; J7030; J7120; Q9967

== ENCOUNTER 2022-11-13 12:32 | Outpatient (CLI) | payer OTHER, SELFPAY ==
[2022-11-13 13:03] LABS: Anion Gap 9 mmol/L (8-16); Blood Urea Nitrogen 8 mg/dL (7-17); Calcium 9.4 mg/dL (8.4-10.2); Carbon Dioxide 24 mmol/L (22-30); Chloride 104 mmol/L (98-107); Estimated Glomerular Filt Rate > 60; Glucose 108 mg/dL (65-110); Potassium 3.7 mmol/L (3.4-5.0); Sodium 137 mmol/L (137-145)
[2022-11-13 13:06] LABS: Basophils Percent Auto 0.5 % (0.2-1.2); Eosinophils Absolute Auto 0.3 K/mm3 (0-0.3); Eosinophils Percent Auto 3.4 % (0-4.4); Hematocrit 41.3 % (37.0-47.0); Hemoglobin 13.5 g/dL (12.0-15.0); Immature Granulocyte Absolute 0.03 K/mm3 (0.00-0.031); Immature Granulocyte Percent A 0.4 % (0-0.5); Lymphocytes Absolute Auto 3.53 K/mm3 (0.9-3.2); Lymphocytes Percent Auto 43.2 % (18.3-44.2); Mean Corpuscular HGB Conc 32.7 g/dl (32-36); Mean Corpuscular Hemoglobin 27.6 pg (26-34); Mean Corpuscular Volume 84.5 fl (80-100); Mean Platelet Volume 9.8 fl (7.4-10.4); Monocytes Absolute Auto 0.5 K/mm3 (0.1-0.6); Neutrophils Absolute Auto 3.8 K/mm3 (1.3-6.7); Neutrophils Percent Auto 46.5 % (45.5-73.1); Platelet Count Result 379 k/mm3 (150-375); Red Blood Count 4.89 M/mm3 (4.2-5.4); Red Cell Distribution Width 13.9 % (11.5-14.5); White Blood Count 8.2 K/mm3 (4.5-10.0)
== END 2022-11-13 12:33 | disposition home or self-care (01) ==
LOC: ANHLAB 12:33
PROVIDERS: PCP Physician Assistant; Visit Provider Surgery
DX: K37 Unspecified appendicitis (principal)
CPT/HCPCS: 36415; 80048; 85025